=== PATIENT | female | born 1975 | race Caucasian/White ===

== ENCOUNTER 2019-05-06 11:45 | Inpatient (IN) ==
[2019-05-06] MEDS ORDERED: IOPAMIDOL 100 ML BOTTLE IV ONE (11:46)
[2019-05-06] MEDS ORDERED: KETOROLAC 30 MG/ML VIAL IV ONE (12:26)
[2019-05-06] MEDS ORDERED: ACETAMINOPHEN 325 MG TABLET PO ONE (12:26)
[2019-05-06] MEDS ORDERED: 0.9 % SODIUM CHLORIDE 1,000 ML IV ONE (12:26)
--- NOTE | 2019-05-06 12:31 | Emergency Department Note ---
General Adult HPI - General Chief complaint: Shortness of Breath/Dyspnea Stated complaint: short of breath Time Seen by Provider: 05/06/19 12:13 Mode of arrival: EMS - History of Present Illness HPI Narrative: 43-year-old female patient presents to the emergency department via ambulance with chief complaint of generalized malaise, fevers, unproductive cough, myalgias, and bloody drainage from the right ear. Patient tells me she developed a earache several days ago. 3 days ago she began having spontaneous bloody drainage from her left ear. Afterwards, she became feverish, coughing, and generalized unwell. She contacted EMS due to left-sided chest wall pain that developed with coughing episode. Upon arrival she complains of considerable pain with deep breathing. She admits that her fever was as high as 103 at home. She denies ear pain currently. She denies runny nose or sinus congestion. She admits to underlying shortness of breath. She admits to smoking only 4 cigarettes daily. She denies palpitations. She denies abdominal pain, nausea, vomiting, or diarrhea. She denies dysuria or hematuria. She denies focal weakness. Her active problem list shows the following: Cerebral edema, community-acquired pneumonia, sepsis. - Related Data Home Medications Medication Instructions Recorded Confirmed No Known Home Meds 07/19/18 05/06/19 Allergies Allergy/AdvReac Type Severity Reaction Status Date / Time codeine Allergy Severe Swelling Verified 07/19/18 00:15 of Lip/Tongue/Throat Review of Systems All systems ED: reviewed and negative except as stated. Past Medical History - Past Medical History Medical history: Reports: non-contributory Psychiatric history: Reports: other (in rehabilitation in the past for drug use.) Surgical history ED: Reports: non-contributory - Social History smoking status: Current every day smoker Alcohol use: Reports: Rarely Drug use: Reports: unknown, marijuana Physical Exam Limitations: no limitations General appearance: alert, anxious, grimacing (Grimacing during cough.), in no apparent distress (No acute respiratory distress.) Head: atraumatic, normocephalic Eye: Present: normal appearance, PERRL, EOMI. Absent: scleral icterus, conjunctival injection External ear: Present: other (Moderate dried, crusted, dark drainage noted to the exterior right ear.) TM/Canal exam: erythema: Right TM, canal discharge: Right TM (Severe amounts of dried blood noted to the right EAC. I am not able to visualize the TM. Left TM was visualized normal in appearance.) Nose: negative: sinus tenderness Nasal speculum exam: Bilateral: normal Throat: Absent: tonsillar erythema, tonsillomegaly, tonsillar exudate Neck: Present: trachea midline. Absent: lymphadenopathy, thyromegaly Chest: Present: symmetric chest wall rise Respiratory: Present: normal lung sounds bilaterally. Absent: respiratory distress, wheezes, stridor, accessory muscle use, prolonged expiratory phase Cardiovascular: Present: regular rate, normal rhythm. Absent: systolic murmur, diastolic murmur Abdominal: Present: soft. Absent: distention, tenderness, guarding, rebound, rigidity, organomegaly, mass Extremities: Absent: pedal edema, pretibial edema, calf tenderness Neurological: Present: alert, oriented X3 Psychiatric: Present: normal affect, anxious Skin: Present: warm, dry Course Course Narrative: Patient was brought into the emergency department and a history and physical exam was performed. Saline lock was established and laboratory studies were drawn. Portable chest x-ray was obtained and reviewed. Patient was given Sherine dol 30mg IVP and acetaminophen 975 mg p.o. normal saline was started at 1000 milliliter bolus. Upon reevaluation patient is continued complaint of left- sided chest pain. She was given Dilaudid 1 mg IVP. A review of her laboratory studies show the following: CBC WBC 1.1, RBC 3.48, hemoglobin 9.5, mag of 33.8, platelets 72 granulocyte percent 72.9, granulocyte #0.8. Lactic acid 1.5. CMP sodium 129, chloride 95, CO2 19, glucose 112, calcium 7.5 (corrected to 8.5), AST 54, ALT 63, total protein 5.2, albumin 2.8, all others normal limits. Troponin less than 0.01. Nasal swab for influenza a/B was positive for A/B. Portable chest x-ray did show a large masslike infiltrate in the left lung. Radiologist recommended chest CT with contrast. Chest CT with contrast was ordered showing severe pneumonia which throughout the remainder of both lungs. There was no evidence of pulmonary emboli or lung abscess. There was some hepatomegaly with fatty infiltration of the liver. She was noted to be somewhat hypotensive with systolic blood pressures in the mid 80s. Normal saline was started at 1000 mL bolus. After 1 L her blood pressure still remained somewhat low with systolic low 90s. A second normal saline 1000 mL bolus was started. After reviewing on the date I discussed these findings with the patient. She is currently suffering from both influenza and where she lying pneumonia. She is also neutropenic complicating the clinical picture. All of this in mind, I reached out to our hospitalist (Dr. Jo) about the need for admission. At this time he recommended further testing including manual differential of the CBC, blood cultures, HIV, UDS, and blood alcohol level. These additional tests were ordered. Patient was started on vancomycin 1000 mg and Zosyn 3.337 g IV. Procalcitonin was 15.08. Blood alcohol level less than 0.010. HIV was nonreactive. Manual differential showed segmented neutrophil percent at 59, bands percent 22, lymphocyte percent 10, platelet estimate was decreased. I discussed the case once again with the hospitalist who informing that he be down to the ER to check on the patient and likely admit her to the hospital for ongoing evaluation. Patient is going to be admitted to the hospital under the care of the hospitalist. All further treatment decisions and modalities will be carried out by the hospitalist. Vital Signs Temperature 97.5 F 05/06/19 11:46 Pulse Rate 118 H 05/06/19 11:46 Respiratory Rate 22 05/06/19 11:46 Blood Pressure 97/56 05/06/19 11:46 Pulse Oximetry (%) 93 05/06/19 11:46 Temperature 98.8 F 05/06/19 13:33 Pulse Rate 113 H 05/06/19 13:41 Respiratory Rate 21 05/06/19 17:47 Blood Pressure 91/56 05/06/19 17:47 Pulse Oximetry (%) 95 05/06/19 13:41 Medical Decision Making - Lab Data Lab results reviewed: Yes I reviewed the patient's lab results. Result diagrams: 05/06/19 12:25 05/06/19 12:25 Lab Results 05/06/19 05/06/19 05/06/19 Range/Units 12:25 12:25 12:25 WBC 1.1 L (4.5-11.0) K/mcL RBC 3.48 L (4.00-5.20) M/mcL Hgb 11.5 L (12.0-15.0) g/dL Hct 33.8 L (36.0-48.0) % MCV 97.0 (80.0-100.0) fL MCH 33.0 (26.0-34.0) pg MCHC 34.0 (31.0-36.0) g/dL RDW 13.1 (11.5-14.5) % Plt Count 72 L (140-440) K/mcL MPV 9.6 (7.4-10.4) fL Gran % 72.9 (38.0-78.0) % Lymph % (Auto) 10.8 L (15.5-49.0) % [place] % (Auto) 16.2 H (1.0-12.0) % Eos % (Auto) 0 (0.0-7.0) % Baso % (Auto) 0.1 (0.0-2.0) % Gran # 0.8 L* (1.8-8.0) K/mcL Lymph # (Auto) 0.1 L (1.5-4.8) K/mcL [place] # (Auto) 0.2 (0.1-0.9) K/mcL Eos # (Auto) 0 (0.0-0.7) K/mcL Baso # (Auto) 0 (0.0-0.3) K/mcL Total Counted Seg Neutrophils % (38-78) % Band Neutrophils % (0-10) % Lymphocytes % (15-49) % Monocytes % (Manual) (1-12) % Metamyelocytes % (0-0) % Myelocytes % (0-0) % Platelet Estimate (NORMAL) RBC Morphology (NORMAL) VBG Lactic Acid 1.5 (0.5-2.0) mmol/L Sodium 129 L (133-145) mmol/L Potassium 3.6 (3.3-5.1) mmol/L Chloride 95 L (96-108) mmol/L Carbon Dioxide 19 L (22-30) mmol/L Anion Gap 15.0 (8-16) BUN 17 (6-20) mg/dl Creatinine 0.8 (0.6-1.1) mg/dl GFR Calculation 89 Glucose 112 H (70-105) mg/dL Calcium 7.5 L (8.6-10.4) mg/dl Total Bilirubin 0.2 (0.0-1.0) mg/dL AST 54 H (0-37) U/l ALT 63 H (0-40) U/l Alkaline Phosphatase 96 (39-117) U/L Troponin T (0-0.03) ng/ml Total Protein 5.2 L (5.9-8.4) gm/dL Albumin 2.8 L (3.2-5.2) gm/dL Globulin 2.4 (2.2-3.7) gm/dL Albumin/Globulin Ratio 1.2 (1.0-2.3) Procalcitonin (<0.10) ng/mL Ethyl Alcohol (<0.010) gm/dl HIV 1&2 Ag/Ab, 4th Gen 05/06/19 05/06/19 05/06/19 Range/Units 12:25 12:25 12:25 WBC (4.5-11.0) K/mcL RBC (4.00-5.20) M/mcL Hgb (12.0-15.0) g/dL Hct (36.0-48.0) % MCV (80.0-100.0) fL MCH (26.0-34.0) pg MCHC (31.0-36.0) g/dL RDW (11.5-14.5) % Plt Count (140-440) K/mcL MPV (7.4-10.4) fL Gran % (38.0-78.0) % Lymph % (Auto) (15.5-49.0) % [place] % (Auto) (1.0-12.0) % Eos % (Auto) (0.0-7.0) % Baso % (Auto) (0.0-2.0) % Gran # (1.8-8.0) K/mcL Lymph # (Auto) (1.5-4.8) K/mcL [place] # (Auto) (0.1-0.9) K/mcL Eos # (Auto) (0.0-0.7) K/mcL Baso # (Auto) (0.0-0.3) K/mcL Total Counted 100 Seg Neutrophils % 59 (38-78) % Band Neutrophils % 22 H (0-10) % Lymphocytes % 10 L (15-49) % Monocytes % (Manual) 7 (1-12) % Metamyelocytes % 1 H (0-0) % Myelocytes % 1 H (0-0) % Platelet Estimate Decreased (NORMAL) RBC Morphology Normal (NORMAL) VBG Lactic Acid (0.5-2.0) mmol/L Sodium (133-145) mmol/L Potassium (3.3-5.1) mmol/L Chloride (96-108) mmol/L Carbon Dioxide (22-30) mmol/L Anion Gap (8-16) BUN (6-20) mg/dl Creatinine (0.6-1.1) mg/dl GFR Calculation Glucose (70-105) mg/dL Calcium (8.6-10.4) mg/dl Total Bilirubin (0.0-1.0) mg/dL AST (0-37) U/l ALT (0-40) U/l Alkaline Phosphatase (39-117) U/L Troponin T < 0.01 (0-0.03) ng/ml Total Protein (5.9-8.4) gm/dL Albumin (3.2-5.2) gm/dL Globulin (2.2-3.7) gm/dL Albumin/Globulin Ratio (1.0-2.3) Procalcitonin 15.08 (<0.10) ng/mL Ethyl Alcohol (<0.010) gm/dl HIV 1&2 Ag/Ab, 4th Gen 05/06/19 05/06/19 Range/Units 15:13 15:28 WBC (4.5-11.0) K/mcL RBC (4.00-5.20) M/mcL Hgb (12.0-15.0) g/dL Hct (36.0-48.0) % MCV (80.0-100.0) fL MCH (26.0-34.0) pg MCHC (31.0-36.0) g/dL RDW (11.5-14.5) % Plt Count (140-440) K/mcL MPV (7.4-10.4) fL Gran % (38.0-78.0) % Lymph % (Auto) (15.5-49.0) % [place] % (Auto) (1.0-12.0) % Eos % (Auto) (0.0-7.0) % Baso % (Auto) (0.0-2.0) % Gran # (1.8-8.0) K/mcL Lymph # (Auto) (1.5-4.8) K/mcL [place] # (Auto) (0.1-0.9) K/mcL Eos # (Auto) (0.0-0.7) K/mcL Baso # (Auto) (0.0-0.3) K/mcL Total Counted Seg Neutrophils % (38-78) % Band Neutrophils % (0-10) % Lymphocytes % (15-49) % Monocytes % (Manual) (1-12) % Metamyelocytes % (0-0) % Myelocytes % (0-0) % Platelet Estimate (NORMAL) RBC Morphology (NORMAL) VBG Lactic Acid (0.5-2.0) mmol/L Sodium (133-145) mmol/L Potassium (3.3-5.1) mmol/L Chloride (96-108) mmol/L Carbon Dioxide (22-30) mmol/L Anion Gap (8-16) BUN (6-20) mg/dl Creatinine (0.6-1.1) mg/dl GFR Calculation Glucose (70-105) mg/dL Calcium (8.6-10.4) mg/dl Total Bilirubin (0.0-1.0) mg/dL AST (0-37) U/l ALT (0-40) U/l Alkaline Phosphatase (39-117) U/L Troponin T (0-0.03) ng/ml Total Protein (5.9-8.4) gm/dL Albumin (3.2-5.2) gm/dL Globulin (2.2-3.7) gm/dL Albumin/Globulin Ratio (1.0-2.3) Procalcitonin (<0.10) ng/mL Ethyl Alcohol < 0.010 (<0.010) gm/dl HIV 1&2 Ag/Ab, 4th Gen Non-reactive - Radiology Data Radiology results reviewed: Yes I reviewed the patient's radiology results. Ordering Physician: Parrish Elliott M.D. Date of Service: 05/06/19 Procedure(s): XR chest 1V portable Accession Number(s): [id number] IMPRESSION: Large masslike infiltrate in the left lung. This could be due to pneumonia, pulmonary infarct or neoplasm. A chest CT with intravenous contrast is recommended for further evaluation. Interpreted and Authenticated by: Mika Contreras 05/06/19 Ordering Physician: Tom Bates PA-C Date of Service: 05/06/19 Procedure(s): CT chest w con Accession Number(s): [id number] IMPRESSION: Severe pneumonia in the lingula with moderate patchy infiltrates throughout the remainder of both lungs No evidence of pulmonary emboli or lung abscess. Hepatomegaly with fatty infiltration of the liver Tom Bates was called with the results Interpreted and Authenticated by: Mika Contreras 05/06/19 - EKG Data EKG #1 EKG attestation: Yes I reviewed and interpreted this EKG., Yes There are no EKG findings of acute coronary syndrome, Yes This EKG will be read by software configuration analyst Disposition Pt seen by IMPREGNATION OPERATOR/PA only: Yes Clinical Impression: Influenza, Rupture of right tympanic membrane Community acquired pneumonia Qualifiers: Laterality: left Lung location: lower lobe of lung Qualified Code(s): J18.9 - Pneumonia, unspecified organism Disposition: Xfer As Inpt ([facility]) Condition: Fair Additional Instructions: Patient is going to be admitted to the hospital under the care of the hospitalist. All further treatment decisions and modalities will be carried out by the hospitalist. Referrals: Unknown,Unknown [Primary Care Provider] - Time of Disposition: 17:50
--- NOTE | 2019-05-06 12:52 | XRay Report ---
HISTORY: Fever, cough, shortness of breath and severe left chest pain FINDINGS: There is an ill-defined 8 x 10 cm masslike infiltrate in the central portion left lung. There is a mild to moderate interstitial infiltrate in the lower third of the right lung with milder interstitial lung disease in the right upper lobe and left lung base. No pleural effusion is present. The heart size is normal. Comparison with the prior exam from 07/18/18 shows the patient previously had moderate bilateral alveolar pneumonia. The masslike density seen in the left lung has developed since prior study. IMPRESSION: Large masslike infiltrate in the left lung. This could be due to pneumonia, pulmonary infarct or neoplasm. A chest CT with intravenous contrast is recommended for further evaluation. Interpreted and Authenticated by: Mika Contreras 05/06/19
[2019-05-06] MEDS ORDERED: HYDROmorphone 2 MG/ML VIAL IV SCH (13:15)
[2019-05-06 13:27] LABS: ALT/SGPT 63 U/l (0-40); AST/SGOT 54 U/l (0-37); Albumin 2.8 gm/dL (3.2-5.2); Albumin/Globulin Ratio 1.2 (1.0-2.3); Alkaline Phosphatase 96 U/L (39-117); Bilirubin,Total 0.2 mg/dL (0.0-1.0); Blood Urea Nitrogen 17 mg/dl (6-20); Calcium 7.5 mg/dl (8.6-10.4); Carbon Dioxide 19 mmol/L (22-30); Globulin 2.4 gm/dL (2.2-3.7); Glomerular Filtration Rate 89; Glucose 112 mg/dL (70-105)
[2019-05-06 13:28] LABS: Chloride 95 mmol/L (96-108)
--- NOTE | 2019-05-06 14:08 | Cat Scan Report ---
History: Shortness of breath, fever and masslike infiltrate in the left lung seen on the preceding chest x-ray TECHNIQUE: The chest was imaged following injection of intravenous nonionic contrast. Sagittal, coronal and axial MIPS images were created. The radiation exposure was limited using dose reduction technology. FINDINGS: There is a large densely consolidating infiltrate throughout the lingula. There are several air bronchograms. There is no apparent underlying lung mass and no abscess. The pulmonary arteries in this lobe are normal, without evidence of emboli. There is a patchy distribution of small nodular infiltrates throughout both lungs the largest nodular density is located in the superior segment of the right lower lobe and measures 1.8 cm. There is no pleural effusion. There are reactive lymph nodes in the mediastinum. The heart is normal in size and contour. Aorta is normal in caliber. There is no chest wall lesion. Severe fatty infiltration is present throughout the liver. The liver is enlarged. IMPRESSION: Severe pneumonia in the lingula with moderate patchy infiltrates throughout the remainder of both lungs No evidence of pulmonary emboli or lung abscess. Hepatomegaly with fatty infiltration of the liver Tom Bates was called with the results Interpreted and Authenticated by: Mika Contreras 05/06/19
[2019-05-06 14:33] LABS: Basophils # (Auto) 0 K/mcL (0.0-0.3); Basophils % (Auto) 0.1 % (0.0-2.0); Eosinophils # (Auto) 0 K/mcL (0.0-0.7); Eosinophils % (Auto) 0 % (0.0-7.0); Granulocytes % (Auto) 72.9 % (38.0-78.0); Hematocrit 33.8 % (36.0-48.0); Hemoglobin 11.5 g/dL (12.0-15.0); Lymphocytes # (Auto) 0.1 K/mcL (1.5-4.8); Lymphocytes % (Auto) 10.8 % (15.5-49.0); Mean Platelet Volume 9.6 fL (7.4-10.4); Monocytes # (Auto) 0.2 K/mcL (0.1-0.9); Monocytes % (Auto) 16.2 % (1.0-12.0); Platelet Count 72 K/mcL (140-440); RBC 3.48 M/mcL (4.00-5.20); Red Cell Distribution Width 13.1 % (11.5-14.5); WBC 1.1 K/mcL (4.5-11.0)
[2019-05-06] MEDS ORDERED: AZITHROMYCIN 500 MG in DEXTROSE 5% IN WATER 250 ML IV ONE (14:51)
[2019-05-06] MEDS ORDERED: cefTRIAXone 1 GM VIAL IV ONE (14:52)
[2019-05-06] MEDS: HYDROmorphone 2 MG/ML VIAL IV PRN ×2 (15:01→16:53)
[2019-05-06] MEDS ORDERED: PIPERACILLIN SODIUM/TAZOBACTAM 3.375 GM in DEXTROSE 5% IN WATER 50 ML IV ONE (15:04)
[2019-05-06] MEDS ORDERED: VANCOMYCIN 1,500 MG in 0.9 % SODIUM CHLORIDE 500 ML IV ONE (15:04)
[2019-05-06] MEDS ORDERED: VANCOMYCIN 1,000 MG in 0.9 % SODIUM CHLORIDE 250 ML IV ONE (15:14)
[2019-05-06] MEDS ORDERED: BENZONATATE 100 MG CAPSULE PO ONE (15:22)
[2019-05-06] MEDS ORDERED: LACTATED RINGERS 1,000 ML IV ONE (15:39)
[2019-05-06 16:02] LABS: Band Neutrophils % 22 % (0-10); Lymphocytes % 10 % (15-49); Metamyelocytes % 1 % (0-0); Monocytes % (Manual) 7 % (1-12); Myelocytes % 1 % (0-0); Platelet Estimate DECREASED (NORMAL); RBC Morphology NORMAL (NORMAL); Segmented Neutrophils % 59 % (38-78)
[2019-05-06 16:20] LABS: Alcohol, Blood < 10.0 mg/dL (<10); Alcohol,Blood < 0.010 gm/dl (<0.010)
[2019-05-06] MEDS ORDERED: FILGRASTIM 300 MCG/ML VIAL SQ ONE ×2 (17:20→18:17)
--- NOTE | 2019-05-06 17:30 | Internal Med History&Physical ---
Medical - H&P: HPI Patient information: Note initiated : 05/06/19 at 5:28 pm Service Date, if different from initiated Date: [] Patient: Neisha Kong a 43 y/o F admitted on for short of breath. Chief Complaint: [] History of present illness: Ms. Kong is a 43 year old F Who presents the ED with generalized weakness malaise headache pleuritic chest pain with notes of breath and mild cough as well as earache. Symptoms started a week or so ago with cold-like symptoms and she had body aches. Complains of fever and chills. In the ED she was found to be neutropenic with an ANC of 850 and chest imaging showed severe pneumonia on the left. She is also positive for influenza a and B on the screen in the ED. I lactate was okay procalcitonin was quite elevated. She had mild transaminitis. Troponin was negative blood alcohol is negative and HIV is negative. She had a similar presentation in July when she presented here in ER transfer to [facility] for flu and pneumonia she was neutropenic at that time received some granular colony-stimulating factor she was temporally on vasopressors she seemed to respond empirically to treatment and then left a day or 2 later AMA. Her chest pain is left chest wall and pleuritic in nature. Complains of occasional headache She was hypotensive in the ED but is responding to IV fluids now in the 90s from the 80s. Review of Systems: Pertinent positives as above. Denies nausea/vomiting/abdominal pain/diarrhea. Remaining 10 point review of system reviewed negative Medical - H&P: PMH Medical history: Past medical history: Arnold-Chiari malformation History of neutropenia and thrombocytopenia with viral illness Chronic anemia Tobacco abuse Substance abuse with meth Headaches Surgical history: None Family: Mother was healthy Father diabetes Social history: Patient smokes 4 cigarettes/day she drinks alcohol rarely She was a heroin addict 3 years ago She uses meth amphetamines occasionally, smokes and denies IV route She also uses Kratom regularly Marijuana Medical - H&P: Meds Home Medications Medication Instructions Recorded Confirmed Type No Known Home Meds 07/19/18 05/06/19 History Allergies Allergy/AdvReac Type Severity Reaction Status Date / Time codeine Allergy Severe Swelling Verified 07/19/18 00:15 of Lip/Tongue/Throat Medical - H&P: Exam - Constitutional Vitals: Temp Pulse Resp BP Pulse Ox 98.8 F 113 H 23 H 85/43 95 05/06/19 13:33 05/06/19 13:41 05/06/19 15:25 05/06/19 15:16 05/06/19 13:41 Exam: General: Alert, Awake, No acute Distress Eyes/N/T: EOMI, PERRL, DMM Head/Neck: neck supple, normocephalic atraumatic CV: Tacky but regular, no murmurs, normal s1/s2 Pulm: Diminished especially on the left, mild wheezing, tenderness to palpation left chest wall Abd: soft, nontender, +BS x4 Ext: no clubbing/cyanosis/edema Neuro: Alert, no focal deficits, moves all extremities, CN 2-12 grossly intact, symmetrical strength b/l upper/lower, sensations intact b/l upper/lower Skin: warm/dry Medical - H&P: Reslt - Labs CBC & Chem 7: 05/06/19 12:25 05/06/19 12:25 Labs: Short CBC 05/06/19 Range/Units 12:25 WBC 1.1 L (4.5-11.0) K/mcL Hgb 11.5 L (12.0-15.0) g/dL Hct 33.8 L (36.0-48.0) % Plt Count 72 L (140-440) K/mcL BMP 05/06/19 12:25 Sodium 129 L Potassium 3.6 Chloride 95 L Carbon Dioxide 19 L BUN 17 Creatinine 0.8 Glucose 112 H Calcium 7.5 L Cardiac Enzymes 05/06/19 Range/Units 12:25 Troponin T < 0.01 (0-0.03) ng/ml Liver Function 05/06/19 Range/Units 12:25 Total Bilirubin 0.2 (0.0-1.0) mg/dL AST 54 H (0-37) U/l ALT 63 H (0-40) U/l Alkaline Phosphatase 96 (39-117) U/L Albumin 2.8 L (3.2-5.2) gm/dL - Impressions Severe pneumonia worse on the left but also infiltrates bilaterally. Hepatomegaly with fatty liver Medical - H&P: A/P - Narrative A/P Narrative: A: *Influenza w/PNA: -PCT 15 *Sepsis w/hypotension: -hypotension responded to 2nd liter of NS -lactate ok *Neutropenia: ANC= 850 -Was neutropenic last time she was ill in July and f/u labs improved at that time. -HIV neg *Volume depletion: *Fatty liver : Mild transaminitis likely 2/2 above & underlying disease process *Thrombocytopenia: Similar response when she had a viral illness in July *Anemia, chronic: *Hyponatremia *Tobacco abuse: *Substance abuse with inhaled Meth & Kratom: * P: -IVF's -Vanc/Zosyn/levaquin given neutropenia, -MRSA screen -pending BC/SC -Tamiflu -UDS/hepatitis pending -G-CSF -monitor ANC - -Smoking/Substance cessation counseling -ppx: lovenox
[2019-05-06] MEDS ORDERED: LEVOFLOXACIN 750 MG/150 ML BAG IV SCH (18:15)
[2019-05-06] MEDS ORDERED: ONDANSETRON 4 MG/2 ML VIAL IV PRN (18:17)
[2019-05-06] MEDS ORDERED: POTASSIUM CHLORIDE 40 MEQ in DEXTROSE 5% IN WATER 500 ML IV PRN (18:17)
[2019-05-06] MEDS ORDERED: POTASSIUM CHLORIDE 20 MEQ TABLET PO PRN ×2 (18:17)
[2019-05-06] MEDS ORDERED: MAGNESIUM SULFATE 2 GM/50 ML BAG IV PRN (18:17)
[2019-05-06] MEDS ORDERED: 0.9 % SODIUM CHLORIDE 1,000 ML IV SCH (18:17)
[2019-05-06] MEDS ORDERED: POLYETHYLENE GLYCOL 3350 17 GM PACKET PO PRN (18:17)
[2019-05-06] MEDS ORDERED: SENNOSIDES 1 TABLET PO PRN (18:17)
[2019-05-06] MEDS ORDERED: VANCOMYCIN PER PHARMACY IV ONE (18:17)
[2019-05-06] MEDS ORDERED: IPRATROPIUM/ALBUTEROL 3 ML AMPUL.NEB NEB PRN (18:17)
[2019-05-06] MEDS ORDERED: PROCHLORPERAZINE 10 MG/2 ML VIAL IV PRN (18:17)
[2019-05-06 19:33] LABS: Hepatitis B Surface Antigen NEGATIVE (NEGATIVE); Hepatitis C Virus Antibody NON REACTIVE (NEGATIVE)
[2019-05-06] MEDS: HYDROcodone/APAP 5/325MG TABLET PO PRN (19:33)
[2019-05-06] MEDS: LEVOFLOXACIN 750 MG/150 ML BAG IV SCH (19:38)
[2019-05-06] MEDS: OSELTAMIVIR PHOSPHATE 75 MG CAPSULE PO SCH (20:56)
[2019-05-06] MEDS: FAMOTIDINE 20 MG TABLET PO SCH (20:56)
[2019-05-06] MEDS: DOCUSATE SODIUM 100 MG CAPSULE PO SCH (20:56)
[2019-05-06] MEDS: ACETAMINOPHEN 325 MG TABLET PO PRN (21:01)
[2019-05-06] MEDS: PIPERACILLIN SODIUM/TAZOBACTAM 3.375 GM in DEXTROSE 5% IN WATER 50 ML IV SCH (21:27)
[2019-05-06] MEDS: 0.9 % SODIUM CHLORIDE 10 ML SYRINGE IV SCH (21:28)
[2019-05-06] MEDS: 0.9 % SODIUM CHLORIDE 1,000 ML IV SCH (22:50)
[2019-05-06] MEDS ORDERED: NOREPINEPHRINE BITARTRATE 4 MG/4 ML VIAL IV ONE (23:01)
[2019-05-06] MEDS: 0.9 % SODIUM CHLORIDE 250 ML IV SCH (23:09)
[2019-05-06] MEDS: NOREPINEPHRINE BITARTRATE 16 MG in 0.9 % SODIUM CHLORIDE 234 ML IV SCH (23:09)
[2019-05-07] MEDS: HYDROcodone/APAP 5/325MG TABLET PO PRN ×5 (00:40→23:24)
[2019-05-07] MEDS: PIPERACILLIN SODIUM/TAZOBACTAM 3.375 GM in DEXTROSE 5% IN WATER 50 ML IV SCH ×4 (01:22→17:17)
[2019-05-07] MEDS: VANCOMYCIN 1,000 MG in 0.9 % SODIUM CHLORIDE 250 ML IV SCH ×2 (04:30→14:24)
[2019-05-07] MEDS: 0.9 % SODIUM CHLORIDE 10 ML SYRINGE IV SCH ×5 (05:35→21:43)
[2019-05-07 06:10] LABS: Hematocrit 35.1 % (36.0-48.0); Hemoglobin 11.7 g/dL (12.0-15.0); Mean Cell Volume 97.9 fL (80.0-100.0); Mean Corpuscular HGB Conc 33.3 g/dL (31.0-36.0); Mean Platelet Volume 9.4 fL (7.4-10.4); Platelet Count 123 K/mcL (140-440); RBC 3.59 M/mcL (4.00-5.20); Red Cell Distribution Width 13.1 % (11.5-14.5); WBC 4.8 K/mcL (4.5-11.0)
[2019-05-07 06:12] LABS: ALT/SGPT 46 U/l (0-40); AST/SGOT 44 U/l (0-37); Albumin 2.4 gm/dL (3.2-5.2); Albumin/Globulin Ratio 0.9 (1.0-2.3); Alkaline Phosphatase 79 U/L (39-117); Bilirubin,Direct < 0.2 mg/dL (0.0-0.3); Bilirubin,Total 0.3 mg/dL (0.0-1.0); Blood Urea Nitrogen 20 mg/dl (6-20); Calcium 7.2 mg/dl (8.6-10.4); Carbon Dioxide 17 mmol/L (22-30); Chloride 98 mmol/L (96-108); Globulin 2.8 gm/dL (2.2-3.7); Glomerular Filtration Rate 77; Glucose 89 mg/dL (70-105); Lactate Dehydrogenase 228 U/L (94-250); Phosphorous 3.6 mg/dL (2.7-4.5); Triglycerides 144 mg/dl (<150); Uric Acid 2.4 mg/dL (2.5-8.0)
[2019-05-07] MEDS ORDERED: VANCOMYCIN PER PHARMACY IV SCH (07:00)
[2019-05-07 07:17] LABS: Band Neutrophils % 37 % (0-10); Dohle Bodies 2+ (NONE SEEN); Lymphocytes % 7 % (15-49); Metamyelocytes % 3 % (0-0); Monocytes % (Manual) 5 % (1-12); Platelet Estimate DECREASED (NORMAL); RBC Morphology NORMAL (NORMAL); Segmented Neutrophils % 48 % (38-78)
[2019-05-07] MEDS ORDERED: ALBUMIN HUMAN 12.5 GM/50 ML BAG IV ONE (07:40)
[2019-05-07] MEDS ORDERED: MAGNESIUM SULFATE 2 GM/50 ML BAG IV ONE (07:43)
--- NOTE | 2019-05-07 07:45 | Internal Med Progress Note ---
Medical - PN: Subj Patient information: Note initiated : 05/07/19 at 7:37 am Service Date, if different from initiated Date: [] Patient: Neisha Kong a 43 y/o F admitted on 05/06/19 for short of breath. Chief Complaint: [] Interval history: Ms. Kong is a 43 year old F Who presents the ED with generalized weakness malaise headache pleuritic chest pain with notes of breath and mild cough as well as earache. Symptoms started a week or so ago with cold-like symptoms and she had body aches. Complains of fever and chills. In the ED she was found to be neutropenic with an ANC of 850 and chest imaging showed severe pneumonia on the left. She is also positive for influenza a and B on the screen in the ED. I lactate was okay procalcitonin was quite elevated. She had mild transaminitis. Troponin was negative blood alcohol is negative and HIV is negative. She had a similar presentation in July when she presented here in ER transfer to [facility] for flu and pneumonia she was neutropenic at that time received some granular colony-stimulating factor she was temporally on vasopressors she seemed to respond empirically to treatment and then left a day or 2 later AMA. Her chest pain is left chest wall and pleuritic in nature. Complains of occasional headache She was hypotensive in the ED but is responding to IV fluids now in the 90s from the 80s. 05/07 Feeling a little better today. Needed to be put on vasopressors last night. Complains of a cough and this has shallow breathing and some shortness of breath from that. Weaning down vasopressors. Review of Systems: Pertinent positives as above. Denies nausea/vomiting/abdominal pain/diarrhea. - Constitutional Vitals: Vital Signs Temp Pulse Resp BP Pulse Ox 98.7 F 96 H 17 104/64 99 05/07/19 06:36 05/07/19 07:00 05/07/19 07:00 05/07/19 07:00 05/07/19 07:00 Period Temp Pulse Resp BP Sys/Garza Pulse Ox Last 24 Hr 97.5 F-101.6 F 95-122 16-31 78-112/43-99 90-99 Intake and Output 05/06/19 05/07/19 05/07/19 21:59 05:59 13:59 Intake Total 450 1141 76 Output Total 425 Balance 450 716 76 Weight 58.695 kg Intake & Output: Intake & Output 05/06/19 05/07/19 05/07/19 21:59 05:59 13:59 Intake Total 450 1141 76 Output Total 425 Balance 450 716 76 Weight 58.695 kg Intake: IV 450 781 76 Sodium Chloride 0.9% 1,000 ml @ 319 75 mls/hr IV .[id number] [facility] Rx#: [id number] Sodium Chloride 0.9% 250 ml @ 34 20 mls/hr IV .[id number] [facility] Rx#: [id number] Levophed 16 mg In Sodium 78 26 Chloride 0.9% 234 ml @ 10 MCG/ MIN 9.375 mls/hr IV Q24H [facility] Rx #:[id number] Zosyn 3.375 gm In Dextrose 5% 50 100 50 in Water 50 ml @ 100 mls/hr IV Q6H [facility] Rx#:[id number] Vancomycin 1,000 mg In Sodium 250 250 Chloride 0.9% 250 ml @ 250 mls/ hr IV Q12H [facility] Rx#:[id number] Oral 0 360 Output: Void Amount 425 Other: Stool Size Large Stool Color Brown Stool Consistency Formed Exam: General: Alert, Awake, No acute Distress Eyes/N/T: EOMI, Head/Neck: neck supple, CV: mildly Tacky but regular, no murmurs, Pulm: Diminished left, no wheezing today, tenderness to palpation left chest wall Abd: soft, nontender, +BS x4 Ext: no clubbing/cyanosis/edema Neuro: Alert, no focal deficits, moves all extremities, Skin: warm/dry Medical - PN: Obj Da - Labs CBC & Chem 7: 05/07/19 04:10 05/07/19 04:10 Labs: Abnormal Lab Results 05/07/19 05/07/19 05/06/19 04:10 04:10 12:25 WBC RBC 3.59 L Hgb 11.7 L Hct 35.1 L Plt Count 123 L Lymph % (Auto) [place] % (Auto) Gran # Lymph # (Auto) Band Neutrophils % 37 H 22 H Lymphocytes % 7 L 10 L Metamyelocytes % 3 H 1 H Myelocytes % 1 H WBC Morphology Abnorm A Dohle Bodies 2+ A Sodium 132 L Chloride Carbon Dioxide 17 L Anion Gap 17.0 H Glucose Uric Acid 2.4 L Calcium 7.2 L Magnesium 1.3 L GGT 80 H AST 44 H ALT 46 H Total Protein 5.2 L Albumin 2.4 L Albumin/Globulin Ratio 0.9 L 05/06/19 05/06/19 12:25 12:25 WBC 1.1 L RBC 3.48 L Hgb 11.5 L Hct 33.8 L Plt Count 72 L Lymph % (Auto) 10.8 L [place] % (Auto) 16.2 H Gran # 0.8 L* Lymph # (Auto) 0.1 L Band Neutrophils % Lymphocytes % Metamyelocytes % Myelocytes % WBC Morphology Dohle Bodies Sodium 129 L Chloride 95 L Carbon Dioxide 19 L Anion Gap Glucose 112 H Uric Acid Calcium 7.5 L Magnesium GGT AST 54 H ALT 63 H Total Protein 5.2 L Albumin 2.8 L Albumin/Globulin Ratio Meds: Medications Acetaminophen (Tylenol) 650 mg PO Q6HP PRN PRN Reason: PAIN/FEVER > 101 Last Admin: 05/06/19 21:01 Dose: 650 mg Documented by: Hydrocodone Bitart/Acetaminophen ([place] 5/325mg) 1 tab PO Q4HP PRN PRN Reason: PAIN LEVEL 3-6 Last Admin: 05/07/19 04:33 Dose: 1 tab Documented by: Albuterol/Ipratropium (Duoneb) 3 ml NEB Q4HP PRN PRN Reason: Shortness Of Breath Last Admin: 05/06/19 21:01 Dose: 3 ml Documented by: Docusate Sodium (Colace) 100 mg PO BID [facility] Last Admin: 05/06/19 20:56 Dose: 100 mg Documented by: Enoxaparin Sodium (Lovenox) 40 mg SQ DAILY [facility] Famotidine (Pepcid) 20 mg PO BID [facility] Last Admin: 05/06/19 20:56 Dose: 20 mg Documented by: Filgrastim (Neupogen) 300 mcg SQ ONCE ONE Stop: 05/06/19 18:18 Levofloxacin (Levaquin) 750 mg in 150 mls @ 100 mls/hr IV DAILY [facility] Last Infusion: 05/06/19 21:25 Dose: Infused Documented by: Potassium Chloride 40 meq/ (Dextrose) 520 mls @ 130 mls/hr IV UD PRN PRN Reason: Potassium < 3 Magnesium Sulfate (Magnesium Sulfate) 2 gm in 50 mls @ 50 mls/hr IV UD PRN PRN Reason: Magnesium </= 1.6 Piperacillin Sod/Tazobactam (Sod 3.375 gm/ Dextrose) 50 mls @ 100 mls/hr IV Q6H [facility]; Protocol Last Infusion: 05/07/19 06:15 Dose: Infused Documented by: Vancomycin HCl 1,000 mg/ (Sodium Chloride) 250 mls @ 250 mls/hr IV Q12H [facility] Last Infusion: 05/07/19 05:42 Dose: Infused Documented by: Sodium Chloride (Sodium Chloride 0.9%) 1,000 mls @ 100 mls/hr IV .Q10H [facility] Stop: 05/07/19 18:59 Last Admin: 05/06/19 22:50 Dose: 100 mls/hr Documented by: Norepinephrine Bitartrate 16 (mg/ Sodium Chloride) 250 mls @ 9.375 mls/hr IV Q24H [facility]; Protocol Last Titration: 05/07/19 07:33 Dose: 9 mcg/min, 8.438 mls/hr Documented by: Sodium Chloride (Sodium Chloride 0.9%) 250 mls @ 20 mls/hr IV .[id number] [facility] Last Infusion: 05/07/19 04:55 Dose: 9 mls/hr Documented by: Ondansetron HCl (Zofran) 4 mg IV Q4HP PRN PRN Reason: Nausea And Vomiting Oseltamivir Phosphate (Tamiflu) 75 mg PO BID [facility] Last Admin: 05/06/19 20:56 Dose: 75 mg Documented by: Polyethylene Glycol (Miralax) 17 gm PO DAILYP PRN PRN Reason: Constipation Potassium Chloride (Kdur) 40 meq PO UD PRN PRN Reason: Potssium is 3-3.5 Potassium Chloride (Kdur) 40 meq PO UD PRN PRN Reason: Potassium < 3 Prochlorperazine (Compazine) 10 mg IV Q6HP PRN PRN Reason: Nausea And Vomiting Senna (Senokot) 2 tab PO DAILYP PRN PRN Reason: Constipation Sodium Chloride (Saline Flush) 10 ml IV Q8 [facility] Last Admin: 05/07/19 05:35 Dose: Not Given Documented by: Vancomycin HCl (Vancomycin Per Pharmacy) 1 order IV UD [facility]; Protocol Medical - PN: A/P - Time Spent With Patient Total time spent is greater than 50% in coordination of care (as documented) at patient's floor/unit and/or counseling patient: - Narrative A/P Narrative: A: *Influenza B (+) w/PNA: -PCT elevated, MRSA screen neg *Sepsis Shock: -lactate ok, MRSA screen neg -on vasopressors *Neutropenia: ANC= 850 on admit. -Was neutropenic last time she was ill in July and f/u labs improved at that time. -HIV/Hepatitis neg -IMproved *Volume depletion: improved *Costochondritis: *Fatty liver : Mild transaminitis likely 2/2 above & underlying disease process *Thrombocytopenia: Similar response when she had a viral illness in July -IMproved *Anemia, chronic: *Hyponatremia: improving *Tobacco abuse: *Substance abuse with inhaled Meth & Kratom: -UDS + for Meth P: -IVF's, wean off vasopressors -Vanc(d/c soon)/Zosyn/levaquin -pending BC/SC -Tamiflu -UDS/hepatitis pending -G-CSF -monitor ANC - -Smoking/Substance cessation counseling -ppx: lovenox
[2019-05-07] MEDS: DOCUSATE SODIUM 100 MG CAPSULE PO SCH ×2 (09:08→21:35)
[2019-05-07] MEDS: ENOXAPARIN 40 MG/0.4 ML SYRINGE SQ SCH (09:08)
[2019-05-07] MEDS: OSELTAMIVIR PHOSPHATE 75 MG CAPSULE PO SCH ×2 (09:08→21:34)
[2019-05-07] MEDS: FAMOTIDINE 20 MG TABLET PO SCH ×2 (09:08→21:34)
[2019-05-07 09:14] LABS: Appearance,Urine CLEAR; Bacteria,Urine 0 /hpf (0); Bilirubin,Urine NEG (NEG); Color,Urine YELLOW; Culture Indicated,Urine NO; Glucose,Urine (UA) NEGATIVE (NEG); Ketones,Urine NEG (NEG); Leukocyte Esterase,Urine NEG /uL (NEG); Nitrate,Urine NEG (NEG); Protein,Urine 30 mg/dL (NEG); Specific Gravity,Urine 1.014 (1.000-1.035); Urine Blood 0.2 mg/dL (<0.03); Urine RBC 3 /hpf (0-1); Urine Squamous Epithelial Cell 1 /hpf (0-4); Urine Transitional Epi Cells < 1 /hpf (0-2); Urine WBC 1 /hpf (0-4); Urobilinogen,Urine NEG (NEG)
[2019-05-07] MEDS ORDERED: HYALURONIDASE, HUMAN RECOMB. 150 UNIT/ML VIAL IJ ONE (09:16)
[2019-05-07 09:24] LABS: Amphetamine Screen,Urine SUSPECT POSITIVE (NONDETECTED); Barbiturate Screen,Urine NONE DETECTED (NONDETECTED); Benzodiazepines Screen,Urine NONE DETECTED (NONDETECTED); Cannabinoid Screen,Urine NONE DETECTED (NONDETECTED); Cocaine Screen,Urine NONE DETECTED (NONDETECTED); Opiate Screen,Urine SUSPECT POSITIVE (NONDETECTED); Oxycodone, Urine Screen NONE DETECTED (NONDETECTED); Phencyclidine Screen,Urine NONE DETECTED (NONDETECTED)
[2019-05-07] MEDS: NITROGLYCERIN 1 GM OINT.TOP TD SCH ×6 (09:40→19:45)
[2019-05-07] MEDS ORDERED: PHENTOLAMINE MESYLATE 5 MG VIAL IJ ONE (09:45)
[2019-05-07] MEDS ORDERED: 0.9 % SODIUM CHLORIDE 10 ML SYRINGE IV PRN (11:21)
--- NOTE | 2019-05-07 12:38 | XRay Report ---
HISTORY: PICC line insertion, pneumonia FINDINGS: the PICC line has been inserted through the left arm. The tip is in the superior vena cava. There is no pneumothorax or pleural effusion. There is a large consolidating infiltrates in the lingula with milder generalized pneumonia throughout the right lung. The heart size is normal. IMPRESSION: Well-positioned PICC line Stable bilateral pneumonia Interpreted and Authenticated by: Mika Contreras 05/07/19
[2019-05-07] MEDS: ACETAMINOPHEN 325 MG TABLET PO PRN (12:49)
[2019-05-07] MEDS: LEVOFLOXACIN 750 MG/150 ML BAG IV SCH (13:24)
[2019-05-07] MEDS: VANCOMYCIN 1,500 MG in 0.9 % SODIUM CHLORIDE 500 ML IV SCH ×2 (14:04→22:56)
[2019-05-07] MEDS: 0.9 % SODIUM CHLORIDE 250 ML IV SCH ×2 (16:13→23:00)
[2019-05-07] MEDS: 0.9 % SODIUM CHLORIDE 1,000 ML IV SCH (18:04)
[2019-05-07] MEDS: KETOROLAC 15 MG/ML VIAL IV PRN (21:41)
[2019-05-08] MEDS: PIPERACILLIN SODIUM/TAZOBACTAM 3.375 GM in DEXTROSE 5% IN WATER 50 ML IV SCH ×5 (00:45→17:08)
[2019-05-08] MEDS: NITROGLYCERIN 1 GM OINT.TOP TD SCH ×7 (01:00→20:30)
[2019-05-08] MEDS: NOREPINEPHRINE BITARTRATE 16 MG in 0.9 % SODIUM CHLORIDE 234 ML IV SCH (01:53)
[2019-05-08] MEDS: ACETAMINOPHEN 325 MG TABLET PO PRN (01:54)
[2019-05-08] MEDS: KETOROLAC 15 MG/ML VIAL IV PRN ×3 (03:22→20:31)
[2019-05-08] MEDS: 0.9 % SODIUM CHLORIDE 10 ML SYRINGE IV SCH ×8 (04:22→20:15)
[2019-05-08] MEDS: HYDROcodone/APAP 5/325MG TABLET PO PRN ×3 (05:58→23:54)
[2019-05-08 06:36] LABS: Hematocrit 27.6 % (36.0-48.0); Hemoglobin 9.2 g/dL (12.0-15.0); Mean Cell Volume 97.6 fL (80.0-100.0); Mean Corpuscular HGB Conc 33.1 g/dL (31.0-36.0); Platelet Count 98 K/mcL (140-440); RBC 2.83 M/mcL (4.00-5.20); Red Cell Distribution Width 13.3 % (11.5-14.5); WBC 6.8 K/mcL (4.5-11.0)
[2019-05-08 06:50] LABS: ALT/SGPT 24 U/l (0-40); AST/SGOT 21 U/l (0-37); Albumin 2.1 gm/dL (3.2-5.2); Alkaline Phosphatase 67 U/L (39-117); Bilirubin,Direct < 0.2 mg/dL (0.0-0.3); Bilirubin,Total 0.2 mg/dL (0.0-1.0); Blood Urea Nitrogen 19 mg/dl (6-20); Calcium 6.8 mg/dl (8.6-10.4); Carbon Dioxide 19 mmol/L (22-30); Globulin 2.2 gm/dL (2.2-3.7); Glomerular Filtration Rate 105; Glucose 74 mg/dL (70-105); Lactate Dehydrogenase 209 U/L (94-250); Triglycerides 221 mg/dl (<150)
[2019-05-08 06:51] LABS: Chloride 109 mmol/L (96-108); Uric Acid 1.7 mg/dL (2.5-8.0)
--- NOTE | 2019-05-08 06:52 | Internal Med Progress Note ---
Medical - PN: Subj Patient information: Note initiated : 05/08/19 at 6:48 am Service Date, if different from initiated Date: [] Patient: Neisha Kong a 43 y/o F admitted on 05/06/19 for short of breath. Chief Complaint: [] Interval history: Ms. Kong is a 43 year old F Who presents the ED with generalized weakness malaise headache pleuritic chest pain with notes of breath and mild cough as well as earache. Symptoms started a week or so ago with cold-like symptoms and she had body aches. Complains of fever and chills. In the ED she was found to be neutropenic with an ANC of 850 and chest imaging showed severe pneumonia on the left. She is also positive for influenza a and B on the screen in the ED. I lactate was okay procalcitonin was quite elevated. She had mild transaminitis. Troponin was negative blood alcohol is negative and HIV is negative. She had a similar presentation in July when she presented here in ER transfer to [facility] for flu and pneumonia she was neutropenic at that time received some granular colony-stimulating factor she was temporally on vasopressors she seemed to respond empirically to treatment and then left a day or 2 later AMA. Her chest pain is left chest wall and pleuritic in nature. Complains of occasional headache She was hypotensive in the ED but is responding to IV fluids now in the 90s from the 80s. 05/07 Feeling a little better today. Needed to be put on vasopressors last night. Complains of a cough and this has shallow breathing and some shortness of breath from that. Weaning down vasopressors. 05/08 Patient doing and feeling much better. Vasopressors off since early evening yesterday. Still has a little bit of shortness of breath and cough. No other new complaints other than the pleuritic chest pain which is improving. Review of Systems: Pertinent positives as above. Denies nausea/vomiting/abdominal pain/diarrhea. - Constitutional Vitals: Vital Signs Temp Pulse Resp BP Pulse Ox 97.1 F 88 17 134/80 97 05/08/19 04:00 05/08/19 06:01 05/08/19 06:01 05/08/19 06:01 05/08/19 06:01 Period Temp Pulse Resp BP Sys/Garza Pulse Ox Last 24 Hr 97.1 F-99.5 F 76-111 12-32 90-144/45-87 95-100 Intake and Output 05/07/19 05/08/19 05/08/19 21:59 05:59 13:59 Intake Total 1864 1790 450 Output Total 650 500 Balance 1214 1290 450 Weight 59.92 kg Intake & Output: Intake & Output 05/07/19 05/08/19 05/08/19 21:59 05:59 13:59 Intake Total 1864 1790 450 Output Total 650 500 Balance 1214 1290 450 Weight 59.92 kg Intake: IV 1864 1550 50 Sodium Chloride 0.9% 1,000 ml @ 1000 1000 100 mls/hr IV .Q10H [facility] Rx#: [id number] Sodium Chloride 0.9% 250 ml @ 156 20 mls/hr IV .[id number] [facility] Rx#: [id number] Levophed 16 mg In Sodium 8 Chloride 0.9% 234 ml @ 10 MCG/ MIN 9.375 mls/hr IV Q24H [facility] Rx #:[id number] Zosyn 3.375 gm In Dextrose 5% 50 50 50 in Water 50 ml @ 100 mls/hr IV Q6H [facility] Rx#:[id number] Vancomycin 1,500 mg In Sodium 500 500 Chloride 0.9% 500 ml @ 333.3 mls/hr IV Q12H [facility] Rx#: [id number] Oral 240 400 Output: Void Amount 650 350 Urine/Stool Mix 150 Other: Meal Dinner Percent of Meal Consumed 50% Feeding Ability Independent Independent Nourishment/Supplement name 100% [place] Urine Appearance Clear Urine Color Dark Yellow Urine Odor Normal Stool Size Small Small Small Stool Color Brown Brown Brown Stool Consistency Formed Formed Dry and Hard # Bowel Movements 1 1 1 Exam: General: Alert, Awake, No acute Distress Eyes/N/T: EOMI, Head/Neck: neck supple, CV: RRRR, no murmurs, Pulm: Diminished left, no wheezing today, Abd: soft, nontender, +BS x4 Ext: no clubbing/cyanosis/edema Neuro: Alert, no focal deficits, moves all extremities, Skin: warm/dry Medical - PN: Obj Da - Labs CBC & Chem 7: 05/08/19 04:00 05/08/19 04:00 Labs: Abnormal Lab Results 05/08/19 05/07/19 05/07/19 04:00 04:10 04:10 WBC RBC 2.83 L 3.59 L Hgb 9.2 L 11.7 L Hct 27.6 L 35.1 L Plt Count 98 L 123 L Lymph % (Auto) [place] % (Auto) Gran # Lymph # (Auto) Band Neutrophils % 37 H Lymphocytes % 7 L Metamyelocytes % 3 H Myelocytes % WBC Morphology Abnorm A Dohle Bodies 2+ A Sodium 132 L Chloride Carbon Dioxide 17 L Anion Gap 17.0 H Glucose Uric Acid 2.4 L Calcium 7.2 L Magnesium 1.3 L GGT 80 H AST 44 H ALT 46 H Total Protein 5.2 L Albumin 2.4 L Albumin/Globulin Ratio 0.9 L Urine Protein Urine Occult Blood Urine RBC Urine Opiates Screen Ur Amphetamines Screen 05/06/19 05/06/19 05/06/19 12:25 12:25 12:25 WBC 1.1 L RBC 3.48 L Hgb 11.5 L Hct 33.8 L Plt Count 72 L Lymph % (Auto) 10.8 L [place] % (Auto) 16.2 H Gran # 0.8 L* Lymph # (Auto) 0.1 L Band Neutrophils % 22 H Lymphocytes % 10 L Metamyelocytes % 1 H Myelocytes % 1 H WBC Morphology Dohle Bodies Sodium 129 L Chloride 95 L Carbon Dioxide 19 L Anion Gap Glucose 112 H Uric Acid Calcium 7.5 L Magnesium GGT AST 54 H ALT 63 H Total Protein 5.2 L Albumin 2.8 L Albumin/Globulin Ratio Urine Protein Urine Occult Blood Urine RBC Urine Opiates Screen Ur Amphetamines Screen 05/06/19 05/06/19 08:15 08:14 WBC RBC Hgb Hct Plt Count Lymph % (Auto) [place] % (Auto) Gran # Lymph # (Auto) Band Neutrophils % Lymphocytes % Metamyelocytes % Myelocytes % WBC Morphology Dohle Bodies Sodium Chloride Carbon Dioxide Anion Gap Glucose Uric Acid Calcium Magnesium GGT AST ALT Total Protein Albumin Albumin/Globulin Ratio Urine Protein 30 A Urine Occult Blood 0.2 A Urine RBC 3 H Urine Opiates Screen Suspect positive A Ur Amphetamines Screen Suspect positive A Meds: Medications Acetaminophen (Tylenol) 650 mg PO Q6HP PRN PRN Reason: PAIN/FEVER > 101 Last Admin: 05/08/19 01:54 Dose: 650 mg Documented by: Hydrocodone Bitart/Acetaminophen ([place] 5/325mg) 1 tab PO Q4HP PRN PRN Reason: PAIN LEVEL 3-6 Last Admin: 05/08/19 05:58 Dose: 1 tab Documented by: Albuterol/Ipratropium (Duoneb) 3 ml NEB Q4HP PRN PRN Reason: Shortness Of Breath Last Admin: 05/06/19 21:01 Dose: 3 ml Documented by: Docusate Sodium (Colace) 100 mg PO BID [facility] Last Admin: 05/07/19 21:35 Dose: 100 mg Documented by: Enoxaparin Sodium (Lovenox) 40 mg SQ DAILY [facility] Last Admin: 05/07/19 09:08 Dose: 40 mg Documented by: Famotidine (Pepcid) 20 mg PO BID [facility] Last Admin: 05/07/19 21:34 Dose: 20 mg Documented by: Heparin Sodium (Porcine) (Heparin Flush) 2 ml IV Q12 [facility] Last Admin: 05/07/19 21:35 Dose: 2 ml Documented by: Potassium Chloride 40 meq/ (Dextrose) 520 mls @ 130 mls/hr IV UD PRN PRN Reason: Potassium < 3 Magnesium Sulfate (Magnesium Sulfate) 2 gm in 50 mls @ 50 mls/hr IV UD PRN PRN Reason: Magnesium </= 1.6 Last Infusion: 05/07/19 09:03 Dose: Infused Documented by: Piperacillin Sod/Tazobactam (Sod 3.375 gm/ Dextrose) 50 mls @ 100 mls/hr IV Q6H [facility]; Protocol Last Infusion: 05/08/19 06:30 Dose: Infused Documented by: Norepinephrine Bitartrate 16 (mg/ Sodium Chloride) 250 mls @ 9.375 mls/hr IV Q24H [facility]; Protocol Last Admin: 05/08/19 01:53 Dose: Not Given Documented by: Sodium Chloride (Sodium Chloride 0.9%) 250 mls @ 20 mls/hr IV .[id number] [facility] Last Admin: 05/07/19 23:00 Dose: Not Given Documented by: Vancomycin HCl 1,500 mg/ (Sodium Chloride) 500 mls @ 333.3 mls/hr IV Q12H [facility] Last Infusion: 05/08/19 00:30 Dose: Infused Documented by: Ketorolac Tromethamine (Toradol) 15 mg IV Q6HP PRN PRN Reason: Per Pain Protocol Stop: 05/09/19 09:49 Last Admin: 05/08/19 03:22 Dose: 15 mg Documented by: Nitroglycerin (Nitro-Bid) 0.5 gm TD Q4H [facility] Stop: 05/09/19 15:59 Last Admin: 05/08/19 04:17 Dose: 0.5 gm Documented by: Ondansetron HCl (Zofran) 4 mg IV Q4HP PRN PRN Reason: Nausea And Vomiting Oseltamivir Phosphate (Tamiflu) 75 mg PO BID [facility] Last Admin: 05/07/19 21:34 Dose: 75 mg Documented by: Polyethylene Glycol (Miralax) 17 gm PO DAILYP PRN PRN Reason: Constipation Potassium Chloride (Kdur) 40 meq PO UD PRN PRN Reason: Potssium is 3-3.5 Potassium Chloride (Kdur) 40 meq PO UD PRN PRN Reason: Potassium < 3 Prochlorperazine (Compazine) 10 mg IV Q6HP PRN PRN Reason: Nausea And Vomiting Senna (Senokot) 2 tab PO DAILYP PRN PRN Reason: Constipation Sodium Chloride (Saline Flush) 10 ml IV Q8 [facility] Last Admin: 05/08/19 04:23 Dose: 10 ml Documented by: Sodium Chloride (Saline Flush) 10 ml IV UD PRN PRN Reason: FLUSH Last Admin: 05/08/19 06:45 Dose: 10 ml Documented by: Sodium Chloride (Saline Flush) 10 ml IV Q12 [facility] Last Admin: 05/08/19 04:22 Dose: 10 ml Documented by: Vancomycin HCl (Vancomycin Per Pharmacy) 1 order IV UD [facility]; Protocol Medical - PN: A/P - Time Spent With Patient Total time spent is greater than 50% in coordination of care (as documented) at patient's floor/unit and/or counseling patient: - Narrative A/P Narrative: A: *Influenza B (+) *PNA(multilobe, L>R): -PCT elevated, MRSA screen neg *Sepsis Shock: resolved -lactate ok, MRSA screen neg, PCT improving -vasopressor early yesterday evening *Neutropenia: ANC= 850 on admit -Was neutropenic last time she was ill in July and f/u labs improved at that time. -HIV/Hepatitis neg -resolved *Volume depletion: improved *Costochondritis: *Fatty liver : Mild transaminitis likely 2/2 above & underlying disease process. *Thrombocytopenia: Similar response when she had a viral illness in July -IMproved *Anemia, chronic: *Hyponatremia: resolved *Tobacco abuse: *Substance abuse with inhaled Meth & Kratom: -UDS + for Meth P: -transfer to medical floor -[place] while on pressors, levaquin for atypicals - deescalate -pending BC/SC -Tamiflu - -Smoking/Substance cessation counseling -ppx: lovenox
[2019-05-08] MEDS ORDERED: CALCIUM GLUCONATE 4.65 MEQ/10 ML VIAL IV ONE (06:54)
[2019-05-08 08:32] LABS: Band Neutrophils % 34 % (0-10); Eosinophils % (Manual) 1 % (0-7); Lymphocytes % 8 % (15-49); Monocytes % (Manual) 3 % (1-12); Platelet Estimate DECREASED (NORMAL); RBC Morphology NORMAL (NORMAL); Reactive Lymphocytes 1 % (0-2); Segmented Neutrophils % 53 % (38-78)
[2019-05-08] MEDS: FAMOTIDINE 20 MG TABLET PO SCH ×2 (09:04→20:14)
[2019-05-08] MEDS: DOCUSATE SODIUM 100 MG CAPSULE PO SCH ×2 (09:04→20:14)
[2019-05-08] MEDS: ENOXAPARIN 40 MG/0.4 ML SYRINGE SQ SCH (09:07)
[2019-05-08] MEDS: OSELTAMIVIR PHOSPHATE 75 MG CAPSULE PO SCH ×2 (09:09→20:14)
[2019-05-08] MEDS: VANCOMYCIN 1,000 MG in 0.9 % SODIUM CHLORIDE 250 ML IV SCH ×2 (09:57→20:14)
[2019-05-08] MEDS ORDERED: LEVOFLOXACIN 750 MG/150 ML BAG IV SCH (10:00)
[2019-05-08] MEDS ORDERED: POTASSIUM CHLORIDE 40 MEQ in DEXTROSE 5% IN WATER 500 ML IV PRN (11:42)
[2019-05-08] MEDS ORDERED: POLYETHYLENE GLYCOL 3350 17 GM PACKET PO PRN (11:42)
[2019-05-08] MEDS ORDERED: SENNOSIDES 1 TABLET PO PRN (11:42)
[2019-05-08] MEDS ORDERED: ONDANSETRON 4 MG/2 ML VIAL IV PRN (11:42)
[2019-05-08] MEDS ORDERED: VANCOMYCIN PER PHARMACY IV SCH (11:42)
[2019-05-08] MEDS ORDERED: MAGNESIUM SULFATE 2 GM/50 ML BAG IV PRN (11:42)
[2019-05-08] MEDS ORDERED: PROCHLORPERAZINE 10 MG/2 ML VIAL IV PRN (11:42)
[2019-05-08] MEDS ORDERED: IPRATROPIUM/ALBUTEROL 3 ML AMPUL.NEB NEB PRN (11:42)
[2019-05-08] MEDS ORDERED: 0.9 % SODIUM CHLORIDE 250 ML IV SCH (11:42)
[2019-05-08] MEDS ORDERED: POTASSIUM CHLORIDE 20 MEQ TABLET PO PRN ×2 (11:42)
[2019-05-08] MEDS ORDERED: CARBAMIDE PEROXIDE OTIC SOL 15ML AS ONE (11:47)
[2019-05-08] MEDS: VANCOMYCIN 1,500 MG in 0.9 % SODIUM CHLORIDE 500 ML IV SCH (11:53)
[2019-05-08] MEDS: 0.9 % SODIUM CHLORIDE 10 ML SYRINGE IV PRN ×2 (12:57→14:18)
[2019-05-08] MEDS: BENZONATATE 100 MG CAPSULE PO PRN ×2 (12:57→20:31)
[2019-05-09] MEDS: NITROGLYCERIN 1 GM OINT.TOP TD SCH ×3 (00:47→07:29)
[2019-05-09] MEDS: HYDROcodone/APAP 5/325MG TABLET PO PRN ×3 (03:56→18:42)
[2019-05-09] MEDS: 0.9 % SODIUM CHLORIDE 10 ML SYRINGE IV SCH ×5 (04:00→20:37)
[2019-05-09] MEDS: BENZONATATE 100 MG CAPSULE PO PRN ×3 (04:05→20:37)
[2019-05-09 07:13] LABS: Hematocrit 29.8 % (36.0-48.0); Hemoglobin 10.1 g/dL (12.0-15.0); Mean Corpuscular HGB Conc 33.8 g/dL (31.0-36.0); Mean Platelet Volume 8.4 fL (7.4-10.4); Platelet Count 166 K/mcL (140-440); RBC 3.07 M/mcL (4.00-5.20); Red Cell Distribution Width 13.4 % (11.5-14.5); WBC 15.1 K/mcL (4.5-11.0)
[2019-05-09] MEDS: ACETAMINOPHEN 325 MG TABLET PO PRN (07:28)
[2019-05-09 07:38] LABS: ALT/SGPT 21 U/l (0-40); AST/SGOT 18 U/l (0-37); Albumin 2.1 gm/dL (3.2-5.2); Albumin/Globulin Ratio 0.8 (1.0-2.3); Alkaline Phosphatase 82 U/L (39-117); Bilirubin,Direct < 0.2 mg/dL (0.0-0.3); Bilirubin,Total < 0.2 mg/dL (0.0-1.0); Blood Urea Nitrogen 17 mg/dl (6-20); Calcium 7.9 mg/dl (8.6-10.4); Carbon Dioxide 21 mmol/L (22-30); Chloride 107 mmol/L (96-108); Globulin 2.5 gm/dL (2.2-3.7); Glomerular Filtration Rate 105; Glucose 88 mg/dL (70-105); Lactate Dehydrogenase 221 U/L (94-250); Triglycerides 251 mg/dl (<150)
[2019-05-09 07:39] LABS: Phosphorous 2.2 mg/dL (2.7-4.5); Uric Acid 2.4 mg/dL (2.5-8.0)
[2019-05-09 07:48] LABS: Band Neutrophils % 16 % (0-10); Lymphocytes % 4 % (15-49); Monocytes % (Manual) 5 % (1-12); Platelet Estimate NORMAL (NORMAL); RBC Morphology NORMAL (NORMAL); Segmented Neutrophils % 75 % (38-78)
[2019-05-09] MEDS: LEVOFLOXACIN 750 MG/150 ML BAG IV SCH (08:30)
[2019-05-09] MEDS: ENOXAPARIN 40 MG/0.4 ML SYRINGE SQ SCH (08:31)
[2019-05-09] MEDS: VANCOMYCIN 1,000 MG in 0.9 % SODIUM CHLORIDE 250 ML IV SCH ×2 (08:31→20:37)
[2019-05-09] MEDS: OSELTAMIVIR PHOSPHATE 75 MG CAPSULE PO SCH ×2 (08:32→20:37)
[2019-05-09] MEDS: FAMOTIDINE 20 MG TABLET PO SCH ×2 (08:32→20:37)
[2019-05-09] MEDS: DOCUSATE SODIUM 100 MG CAPSULE PO SCH ×2 (08:33→19:38)
[2019-05-09] MEDS ORDERED: fentaNYL 100 MCG/2 ML VIAL IV ONE (11:33)
--- NOTE | 2019-05-09 16:22 | Internal Med Progress Note ---
Medical - PN: Subj Patient information: Note initiated : 05/09/19 at 4:20 pm Service Date, if different from initiated Date: [] Patient: Neisha Kong a 43 y/o F admitted on 05/06/19 for short of breath. Chief Complaint: f/u sepsis Interval history: 05/06 Ms. Kong is a 43 year old F Who presents the ED with generalized weakness malaise headache pleuritic chest pain with notes of breath and mild cough as well as earache. Symptoms started a week or so ago with cold-like symptoms and she had body aches. Complains of fever and chills. In the ED she was found to be neutropenic with an ANC of 850 and chest imaging showed severe pneumonia on the left. She is also positive for influenza a and B on the screen in the ED. I lactate was okay procalcitonin was quite elevated. She had mild transaminitis. Troponin was negative blood alcohol is negative and HIV is negative. She had a similar presentation in July when she presented here in ER transfer to [facility] for flu and pneumonia she was neutropenic at that time received some granular colony-stimulating factor she was temporally on vasopressors she seemed to respond empirically to treatment and then left a day or 2 later AMA. Her chest pain is left chest wall and pleuritic in nature. Complains of occasional headache She was hypotensive in the ED but is responding to IV fluids now in the 90s from the 80s. 05/07 Feeling a little better today. Needed to be put on vasopressors last night. Complains of a cough and this has shallow breathing and some shortness of breath from that. Weaning down vasopressors. 05/08 Patient doing and feeling much better. Vasopressors off since early evening yesterday. Still has a little bit of shortness of breath and cough. No other new complaints other than the pleuritic chest pain which is improving. 05/09 Had significant headache with Nitro-Dur patch placed secondary to infiltration of peripheral IV with norepinephrine on 05/07. Has been stopped. Feels significantly better after single dose of fentanyl. Still with pleuritic left upper chest pain, though that is improving. Feels like secretions are starting to break up. White count significantly elevated to 15,000 today. No fever, no chills. - Constitutional Vitals: Vital Signs Temp Pulse Resp BP Pulse Ox 98.3 F 86 20 115/70 97 05/09/19 16:00 05/09/19 03:49 05/09/19 16:00 05/09/19 16:00 05/09/19 16:00 Period Temp Pulse Resp BP Sys/Garza Pulse Ox Last 24 Hr 97.9 F-99.6 F 86-89 16-24 102-124/65-78 96-99 Intake and Output 05/09/19 05/09/19 05/09/19 05:59 13:59 21:59 Intake Total 450 1140 300 Output Total 500 Balance 450 640 300 Intake & Output: Intake & Output 05/09/19 05/09/19 05/09/19 05:59 13:59 21:59 Intake Total 450 1140 300 Output Total 500 Balance 450 640 300 Intake: IV 400 Vancomycin 1,000 mg In Sodium 250 Chloride 0.9% 250 ml @ 250 mls/ hr IV Q12H [facility] Rx#:[id number] Oral 450 740 300 Output: Void Amount 500 Other: Meal Breakfast Percent of Meal Consumed 75% Feeding Ability Independent Urine Appearance Clear Urine Color Straw Urine Odor Normal Stool Size Moderate Stool Color Brown Stool Consistency Formed Loose Katie # Voids 2 # Bowel Movements 3 2 Exam: General: In no acute distress Chest: Bronchial breath sounds left upper lung field, clear posteriorly, no accessory muscle use Cardiovascular: Regular, no edema Abdomen: Soft, nontender Neuro: Alert, oriented x3, moves all extremities equally. Medical - PN: Obj Da - Labs CBC & Chem 7: 05/09/19 06:10 05/09/19 06:10 Labs: Abnormal Lab Results 05/09/19 05/09/19 05/08/19 06:10 06:10 04:00 WBC 15.1 H RBC 3.07 L Hgb 10.1 L Hct 29.8 L Plt Count Band Neutrophils % 16 H Lymphocytes % 4 L Metamyelocytes % WBC Morphology Dohle Bodies Sodium Chloride 109 H Carbon Dioxide 21 L 19 L Anion Gap Uric Acid 2.4 L 1.7 L Calcium 7.9 L 6.8 L Phosphorus 2.2 L 2.0 L Magnesium GGT 39 H 46 H AST ALT Total Protein 4.6 L 4.3 L Albumin 2.1 L 2.1 L Albumin/Globulin Ratio 0.8 L Triglycerides 251 H 221 H Urine Protein Urine Occult Blood Urine RBC Urine Opiates Screen Ur Amphetamines Screen 05/08/19 05/07/19 05/07/19 04:00 04:10 04:10 WBC RBC 2.83 L 3.59 L Hgb 9.2 L 11.7 L Hct 27.6 L 35.1 L Plt Count 98 L 123 L Band Neutrophils % 34 H 37 H Lymphocytes % 8 L 7 L Metamyelocytes % 3 H WBC Morphology Abnorm A Dohle Bodies 2+ A Sodium 132 L Chloride Carbon Dioxide 17 L Anion Gap 17.0 H Uric Acid 2.4 L Calcium 7.2 L Phosphorus Magnesium 1.3 L GGT 80 H AST 44 H ALT 46 H Total Protein 5.2 L Albumin 2.4 L Albumin/Globulin Ratio 0.9 L Triglycerides Urine Protein Urine Occult Blood Urine RBC Urine Opiates Screen Ur Amphetamines Screen 05/06/19 05/06/19 08:15 08:14 WBC RBC Hgb Hct Plt Count Band Neutrophils % Lymphocytes % Metamyelocytes % WBC Morphology Dohle Bodies Sodium Chloride Carbon Dioxide Anion Gap Uric Acid Calcium Phosphorus Magnesium GGT AST ALT Total Protein Albumin Albumin/Globulin Ratio Triglycerides Urine Protein 30 A Urine Occult Blood 0.2 A Urine RBC 3 H Urine Opiates Screen Suspect positive A Ur Amphetamines Screen Suspect positive A Microbiology 05/06/19 15:28 Blood Blood Culture - Preliminary 05/06/19 15:15 Blood Blood Culture - Preliminary 05/06/19 18:00 Nasopharynx Respiratory Virus Panel (PCR) - Final 05/06/19 18:00 Nasopharynx Respiratory Panel (PCR) - Final 05/06/19 18:00 Nose MRSA (PCR) - Final Meds: Medications Acetaminophen (Tylenol) 650 mg PO Q6HP PRN PRN Reason: PAIN/FEVER > 101 Last Admin: 05/09/19 07:28 Dose: 650 mg Documented by: Hydrocodone Bitart/Acetaminophen ([place] 5/325mg) 1 tab PO Q4HP PRN PRN Reason: PAIN LEVEL 3-6 Last Admin: 05/09/19 10:23 Dose: 1 tab Documented by: Albuterol/Ipratropium (Duoneb) 3 ml NEB Q4HP PRN PRN Reason: Shortness Of Breath Benzonatate (Tessalon) 200 mg PO TIDP PRN PRN Reason: Cough Last Admin: 05/09/19 11:58 Dose: 200 mg Documented by: Docusate Sodium (Colace) [address] [facility] Last Admin: 05/09/19 08:33 Dose: Not Given Documented by: Enoxaparin Sodium (Lovenox) [address] [facility] Last Admin: 05/09/19 08:31 Dose: 40 mg Documented by: Famotidine (Pepcid) [address] [facility] Last Admin: 05/09/19 08:32 Dose: 20 mg Documented by: Heparin Sodium (Porcine) (Heparin Flush) [address] [facility] Last Admin: 05/09/19 08:31 Dose: 2 ml Documented by: Vancomycin HCl 1,000 mg/ (Sodium Chloride) 250 mls @ 250 mls/hr IV Q12H [facility] Last Infusion: 05/09/19 11:11 Dose: Infused Documented by: Potassium Chloride 40 meq/ (Dextrose) 520 mls @ 130 mls/hr IV UD PRN PRN Reason: Potassium < 3 Levofloxacin (Levaquin) 750 mg in 150 mls @ 100 mls/hr IV Q24H [facility] Last Infusion: 05/09/19 11:11 Dose: Infused Documented by: Magnesium Sulfate (Magnesium Sulfate) 2 gm in 50 mls @ 50 mls/hr IV UD PRN PRN Reason: Magnesium </= 1.6 Ondansetron HCl (Zofran) 4 mg IV Q4HP PRN PRN Reason: Nausea And Vomiting Oseltamivir Phosphate (Tamiflu) [address] [facility] Last Admin: 05/09/19 08:32 Dose: 75 mg Documented by: Polyethylene Glycol (Miralax) 17 gm PO DAILYP PRN PRN Reason: Constipation Potassium Chloride (Kdur) 40 meq PO UD PRN PRN Reason: Potssium is 3-3.5 Potassium Chloride (Kdur) 40 meq PO UD PRN PRN Reason: Potassium < 3 Prochlorperazine (Compazine) 10 mg IV Q6HP PRN PRN Reason: Nausea And Vomiting Senna (Senokot) 2 tab PO DAILYP PRN PRN Reason: Constipation Sodium Chloride (Saline Flush) 10 ml IV UD PRN PRN Reason: FLUSH Last Admin: 05/08/19 14:18 Dose: 10 ml Documented by: Sodium Chloride (Saline Flush) [address] [facility] Last Admin: 05/09/19 14:14 Dose: 10 ml Documented by: Sodium Chloride (Saline Flush) [address] [facility] Last Admin: 05/09/19 09:01 Dose: 10 ml Documented by: Vancomycin HCl (Vancomycin Per Pharmacy) [address] [facility]; Protocol Medical - PN: A/P - Time Spent With Patient Total time spent is greater than 50% in coordination of care (as documented) at patient's floor/unit and/or counseling patient: 25 - 35 minutes - Narrative A/P Narrative: A: *Influenza B (+) *PNA(multilobe, L>R): -PCT elevated, MRSA screen neg *Sepsis with septic shock: resolved -lactate ok, MRSA screen neg, PCT improving -vasopressors discontinued early evening 05/07 *Neutropenia: ANC= 850 on admit, now with robust leukocytosis to 15,000 -Was neutropenic last time she was ill in July and f/u labs improved at that time. -Suspect leukocytosis is recovery of bone marrow suppression from viral illness -HIV/Hepatitis neg *Volume depletion: improved *Costochondritis/pleuritic chest pain: *Fatty liver : Mild transaminitis likely 2/2 above & underlying disease process. *Thrombocytopenia: Similar response when she had a viral illness in July -Continues to improve *Anemia, chronic: *Hyponatremia: resolved *Tobacco abuse: *Substance abuse with inhaled Meth & Kratom: -UDS + for Meth P: -Continue levofloxacin (vanc/Zosyn stopped yesterday) -Continue Tamiflu -Monitor white count, if decreasing tomorrow, may be stable for discharge -Smoking/Substance cessation counseling -ppx: lovenox
[2019-05-09] MEDS: guaiFENesin/DEXTROMETHORPHAN ORAL SOL PO PRN (19:29)
[2019-05-10] MEDS: guaiFENesin/DEXTROMETHORPHAN ORAL SOL PO PRN ×3 (00:05→15:58)
[2019-05-10] MEDS: HYDROcodone/APAP 5/325MG TABLET PO PRN ×4 (00:08→15:56)
[2019-05-10] MEDS: BENZONATATE 100 MG CAPSULE PO PRN ×2 (02:28→10:55)
[2019-05-10 05:39] LABS: Basophils # (Auto) 0 K/mcL (0.0-0.3); Basophils % (Auto) 0 % (0.0-2.0); Eosinophils # (Auto) 0 K/mcL (0.0-0.7); Eosinophils % (Auto) 0.4 % (0.0-7.0); Granulocytes % (Auto) 81.6 % (38.0-78.0); Hematocrit 32.7 % (36.0-48.0); Lymphocytes # (Auto) 0.8 K/mcL (1.5-4.8); Lymphocytes % (Auto) 9.1 % (15.5-49.0); Mean Cell Volume 97.4 fL (80.0-100.0); Mean Corpuscular HGB Conc 33.5 g/dL (31.0-36.0); Mean Platelet Volume 7.9 fL (7.4-10.4); Monocytes # (Auto) 0.8 K/mcL (0.1-0.9); Monocytes % (Auto) 8.9 % (1.0-12.0); Platelet Count 202 K/mcL (140-440); RBC 3.36 M/mcL (4.00-5.20); Red Cell Distribution Width 13.5 % (11.5-14.5); WBC 9.1 K/mcL (4.5-11.0)
[2019-05-10 06:06] LABS: Blood Urea Nitrogen 10 mg/dl (6-20); Calcium 8.1 mg/dl (8.6-10.4); Carbon Dioxide 23 mmol/L (22-30); Chloride 105 mmol/L (96-108); Glomerular Filtration Rate 110; Glucose 102 mg/dL (70-105)
[2019-05-10] MEDS: VANCOMYCIN 1,000 MG in 0.9 % SODIUM CHLORIDE 250 ML IV SCH (08:25)
[2019-05-10] MEDS: ENOXAPARIN 40 MG/0.4 ML SYRINGE SQ SCH (08:26)
[2019-05-10] MEDS: 0.9 % SODIUM CHLORIDE 10 ML SYRINGE IV SCH (08:26)
[2019-05-10] MEDS: OSELTAMIVIR PHOSPHATE 75 MG CAPSULE PO SCH (08:27)
[2019-05-10] MEDS: ACETAMINOPHEN 325 MG TABLET PO PRN (08:27)
[2019-05-10] MEDS: FAMOTIDINE 20 MG TABLET PO SCH (08:27)
[2019-05-10] MEDS: DOCUSATE SODIUM 100 MG CAPSULE PO SCH (08:35)
[2019-05-10] MEDS: LEVOFLOXACIN 750 MG/150 ML BAG IV SCH (09:53)
[2019-05-10] MEDS: KETOROLAC 30 MG/ML VIAL IV PRN ×2 (10:55→17:23)
--- NOTE | 2019-05-10 15:49 | Discharge Summary ---
Medical - DS: Prov Patient information: Note initiated : 05/10/19 at 3:47 pm Service Date, if different from initiated Date: [] Patient: Neisha Kong a 43 y/o F admitted on 05/06/19 for short of breath. Date of admission: 05/06/19 18:00 Discharge date: 05/10/19 Admitting clinician: Francois Jo Consults: 05/06/19 Consult to Physician [CONS] Stat Comment: Consulting Provider: Francois Jo Reason For Exam: Physician to Consult Discharging clinician: Gail Gould Medical - DS: Meds - Discharge Medications Prescriptions: Levofloxacin [Levaquin] 750 mg PO DAILY #2 tab Transmission Status: Pending to [facility] 2005 Oseltamivir Phosphate [Tamiflu] 75 mg PO BID #2 cap Transmission Status: Pending to [facility] 2005 Benzonatate [Tessalon] 200 mg PO TIDP PRN #30 cap PRN Reason: Cough Transmission Status: Pending to [facility] 2005 Active and Home Medications: Home Medications No Known Home Meds 07/19/18 [History Confirmed 05/06/19 Last Taken Unknown] Medical - DS: Hosp Hospital Course: 05/06 Ms. Kong is a 43 year old F Who presents the ED with generalized weakness malaise headache pleuritic chest pain with notes of breath and mild cough as well as earache. Symptoms started a week or so ago with cold-like symptoms and she had body aches. Complains of fever and chills. In the ED she was found to be neutropenic with an ANC of 850 and chest imaging showed severe pneumonia on the left. She is also positive for influenza a and B on the screen in the ED. I lactate was okay procalcitonin was quite elevated. She had mild transaminitis. Troponin was negative blood alcohol is negative and HIV is negative. She had a similar presentation in July when she presented here in ER transfer to [facility] for flu and pneumonia she was neutropenic at that time received some granular colony-stimulating factor she was temporally on vasopressors she seemed to respond empirically to treatment and then left a day or 2 later AMA. Her chest pain is left chest wall and pleuritic in nature. Complains of occasional headache She was hypotensive in the ED but is responding to IV fluids now in the 90s from the 80s. 12/27 Feeling a little better today. Needed to be put on vasopressors last night. Complains of a cough and this has shallow breathing and some shortness of breath from that. Weaning down vasopressors. 05/08 Patient doing and feeling much better. Vasopressors off since early evening yesterday. Still has a little bit of shortness of breath and cough. No other new complaints other than the pleuritic chest pain which is improving. 05/09 Had significant headache with Nitro-Dur patch placed secondary to infiltration of peripheral IV with norepinephrine on 05/07. Has been stopped. Feels significantly better after single dose of fentanyl. Still with pleuritic left upper chest pain, though that is improving. Feels like secretions are starting to break up. White count significantly elevated to 15,000 today. No fever, no chills. 05/10 Continues to feel well, decreased pleuritic left upper chest pain, less of a cough. No pain in the right forearm where an IV infiltrated. Continues to mobilize secretions. White count is normalized, pro calcitonin continues to decrease in the 2.4 range today. Stable for discharge to home to continue full 5 days of Tamiflu as well as levofloxacin for possible underlying bacterial pneumonia (suspected due to significantly elevated procalcitonin). She had loose stools today, C. difficile is negative. Recommendations for discharge: Follow-up radiograph to assure clearing of pneumonia. Follow-up labs to evaluate stability of CBC. Discharge diagnosis: Influenza B with sepsis and septic shock Secondary discharge diagnosis: Multilobar pneumonia, suspected bacterial with elevated procalcitonin Neutropenia, suspected secondary to viral infection, resolved; negative HIV and hepatitis screen Thrombocytopenia, suspected secondary to viral illness with resolution Anemia, chronic Costochondritis/pleuritic chest pain Fatty liver Hyponatremia: resolved Tobacco abuse Substance abuse with inhaled Meth & Kratom - Time Spent with Patient Total time spent providing and/or coordinating discharge services: Greater than 30 minutes Medical - DS: Exam - Constitutional Vitals: Vital Signs Temp Pulse Resp BP Pulse Ox 05/10/19 12:00 98.7 F 68 16 104/58 05/10/19 08:00 97.0 F 72 16 112/60 96 05/10/19 04:00 99.7 F H 79 12 115/75 95 05/09/19 23:18 14 05/09/19 23:16 98.1 F 74 16 112/62 98 05/09/19 19:39 98.3 F 76 14 108/66 96 05/09/19 16:00 98.3 F 20 115/70 97 Intake and Output 05/10/19 05/10/19 05/10/19 05:59 13:59 21:59 Intake Total 800 480 240 Output Total 700 Balance 800 -220 240 Intake: Oral 800 480 240 Output: Void Amount 200 Stool 500 Other: Meal Breakfast Lunch Percent of Meal Consumed 75% 100% Feeding Ability Independent Independent Urine Appearance Clear Urine Color Bright Yellow Stool Size Large Stool Color Brown Stool Consistency Liquid Watery # Voids 3 1 1 # Bowel Movements 3 1 Additional comments: General: Up in bed no acute distress Chest: Clear, no bronchial breath sounds in the left anterior upper lung cochran today Cardiovascular: Regular, no edema Abdomen: Soft, nontender, no rebound, no active bowel sounds Neuro: Alert, oriented x3, nonfocal Medical - DS: Data Labs on day of discharge: Labs from last 24 hours 05/10/19 05/10/19 05/10/19 10:17 04:00 04:00 WBC 9.1 RBC 3.36 L Hgb 11.0 L Hct 32.7 L MCV 97.4 MCH 32.6 MCHC 33.5 RDW 13.5 Plt Count 202 MPV 7.9 Gran % 81.6 H Lymph % (Auto) 9.1 L [place] % (Auto) 8.9 Eos % (Auto) 0.4 Baso % (Auto) 0 Gran # 7.4 Lymph # (Auto) 0.8 L [place] # (Auto) 0.8 Eos # (Auto) 0 Baso # (Auto) 0 Sodium 139 Potassium 3.8 Chloride 105 Carbon Dioxide 23 Anion Gap 11.0 BUN 10 Creatinine 0.6 GFR Calculation 110 Glucose 102 Calcium 8.1 L Procalcitonin 2.40 Preliminary micro results at discharge 05/06/19 15:28 Blood Culture - Preliminary Blood 05/06/19 15:15 Blood Culture - Preliminary Blood - Imaging and Cardiology Chest x-ray Additional comments: Date of Service: 05/06/19 Procedure(s): XR chest 1V portable IMPRESSION: Large masslike infiltrate in the left lung. This could be due to pneumonia, pulmonary infarct or neoplasm. A chest CT with intravenous contrast is recommended for further evaluation. CT scan - chest Additional comments: Date of Service: 05/06/19 Procedure(s): CT chest w con IMPRESSION: Severe pneumonia in the lingula with moderate patchy infiltrates throughout the remainder of both lungs No evidence of pulmonary emboli or lung abscess. Hepatomegaly with fatty infiltration of the liver Medical - DS: A/P - Patient/Caregiver Discharge Instructions Activity: increase activity as tolerated Diet: Regular Diet Additional Instructions: Patient is going to be admitted to the hospital under the care of the hospitalist. All further treatment decisions and modalities will be carried out by the hospitalist. - Follow up Plan Follow up with: Unknown,Unknown [Referring] - (Follow up with primary care in 7-10 days) Disposition: Home, Self-Care Prognosis: Good Rehab Potential: Good Overall status at discharge: patient is progressing back to baseline
[2019-05-14 16:38] LABS: Opiate Confirmation POSITIVE (N)
== END 2019-05-10 18:30 | disposition home or self-care (01) | DRG 871 ==
LOC: ED 11:45 → ICU 18:00 → SUATTDRO 18:00 → ICU 18:10 → MEDSUR 05-08 14:50
PROVIDERS: ADMIT Internal Medicine; ATTEND Internal Medicine